=== PATIENT | female | born 1955 | race Two or more races ===

== ENCOUNTER 2016-08-17 18:25 | Emergency (ER) | payer BC, OTHER ==
[~2016-08-17] VITALS: Ht 157.5 cm; Wt 58.1 kg
[2016-08-17] MEDS ORDERED: IBUPROFEN600 MG ORAL (19:04)
[2016-08-17 19:09] VITALS: BP 153/86
[2016-08-17 19:10] VITALS: BP 154/89
--- NOTE | 2016-08-17 21:55 | Emergency Room Report ---
History of Present Illness General Chief Complaint: Upper Extremity Injury Source: Patient Present Illness HPI The patient is a 61-year-old female presenting for right hand finger pain which began today. 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 She noticed immediate pain which is described as a 5/10 dull ache and does not radiate. Pain worse with movement and touch. She denies previous injury to this area and denies any other symptoms including N, V, F, chills, numbness/tingling Allergies: Coded Allergies: No Known Allergies (Unverified , 06/30/13) Patient History Past Medical History: see triage record Pertinent Family History: none Last Menstrual Period: N/a Now: No Reviewed Nursing Documentation: PMH: Agreed, PSxH: Agreed Nursing Documentation-PMH Past Medical History: No Stated History Review of Systems All Other Systems: negative except mentioned in HPI Physical Exam Vital Signs Date Time Temp Pulse Resp B/P Pulse Ox O2 Delivery O2 Flow Rate FiO2 08/17/16 18:34 97.3 67 18 154/89 99 Room Air Sp02 EP Interpretation: reviewed, normal General Appearance: no apparent distress, alert, GCS 15, non-toxic Head: normocephalic, atraumatic Eyes: bilateral eye PERRL, bilateral eye normal inspection ENT: hearing grossly normal, normal pharynx, no angioedema, normal voice Neck: full range of motion, supple/symm/no masses Musculoskeletal: normal range of motion, swelling, tender - TTP over the R 5th PIPJ Neurologic: alert, oriented x3, responsive, motor strength/tone normal, sensory intact, speech normal Psychiatric: judgement/insight normal, memory normal, mood/affect normal, no suicidal/homicidal ideation Skin: normal color, no rash, warm/dry, well hydrated Lymphatic: no adenopathy Procedures Splinting Splinting : Consent: Verbal Location: R hand 5th digit Pre-Made Type: metal Splint: finger Pre-Proc Neuro Vasc Exam: normal Post-Proc Neuro Vasc Exam: normal Patient Tolerated: Well Complications: None Medical Decision Making PA Attestation Dr. salazar is my supervising physician. Patient management was discussed with my supervising physician Diagnostic Impression: Primary Impression: Sprain of finger of left hand Qualified Codes: S63.619A - Unspecified sprain of unspecified finger, initial encounter ER Course The patient is a 61-year-old female presenting for right hand finger pain which began today Differential diagnoses considered but not limited to: Fracture, contusion, sprain, dislocation Physical exam: Vitals within normal limits. no apparent distress There is tenderness to palpation, swelling, over the right fifth digit PIP joint. Full active range of motion. X-ray of the hand is unremarkable A finger splint is placed and the patient is given RICE instructions. The patient will followup with PMD. ER precautions given Other X-Ray Diagnostic Results Other X-Ray Diagnostic Results : X-Ray Ordered: R hand Date: August 17, 2016 EP Interpretation: Yes Findings: no fractures, no dislocation, no soft tissue swelling Number of Views: 3 PA Scribe Text I am acting as scribe for my supervising physician. My supervising physician's interpretation of the R hand xrays are there are no fractures, dislocations or soft tissue swelling. Last Vital Signs Date Time Temp Pulse Resp B/P Pulse Ox O2 Delivery O2 Flow Rate FiO2 08/17/16 19:10 97.3 18 154/89 99 Room Air 08/17/16 19:09 70 Status: improved Disposition: HOME, SELF-CARE Condition: Improved Scripts Ibuprofen* (MOTRIN*) 600 Mg Tablet 600 MG ORAL Q6H Y for For Pain, #30 TAB Prov: PATRICE MYERS 08/17/16 Referrals: HANNA MCKINLEY (PCP) Patient Instructions: Finger Sprain Additional Instructions: I discussed my findings with the patient. All questions and concerns have been answered. Treatment and medication compliance have been addressed. I advised the patient that they need to follow up with PMD in 3-5 days. Return to ED if pain remains or worsens, numbness or tingling occurs, new rash is noticed, fever is noticed, or if needed for any reason. Patient verbalized understanding of discharge instructions. PATRICE MYERS August 17, 2016 21:55
--- NOTE | 2016-08-18 10:27 | Diagnostic Imaging Report ---
Indication: pain Findings: 3 views of the right hand were obtained. The bones are osteopenic. No acute fractures, erosions, or periosteal reaction are seen. Soft tissues are unremarkable. Impression: No acute injury
== END 2016-08-17 19:11 | disposition home or self-care (01) ==
LOC: EMR 18:55
DX: S63.636A Sprain of interphalangeal joint of right little finger, initial encounter (principal); X50.9XXA Other and unspecified overexertion or strenuous movements or postures, initial encounter; Y92.219 Unspecified school as the place of occurrence of the external cause; Y99.0 Civilian activity done for income or pay
CPT/HCPCS: 29130; 99283